=== PATIENT | female | born 1960 | race Caucasian/White ===

== ENCOUNTER 2024-03-02 17:17 | Inpatient (IN) | payer MEDICAID, SELFPAY ==
--- NOTE | ~2024-03-02 | MR_ITS ---
MRI of the brain Clinical History: Left-sided weakness, CVA Technique: Axial and sagittal T1-weighted images were acquired. These were followed by axial T2-weigh colby, diffusion weighted, gradient, and FLAIR images. Following intravenous administration of 16 cc Mu ltiHance gadolinium, T1-weighted fat-sat imaging was performed in the axial and coronal planes. Findings: There is a 1.4 x 0.6 cm area of restricted diffusion in the right paramedian ericka, compatib le with acute pontine infarct. There is corresponding subtle FLAIR hyperintense signal in this region . No other significant signal abnormality seen in the brain parenchyma. There are minimal chronic christa rovascular ischemic changes in the periventricular white matter bilaterally. Ventricles and subarachnoid spaces are unremarkable. Orbits are unremarkable. There is minimal ethmoi d sinus disease. Remaining paranasal sinuses and mastoid air cells are clear. Major intracranial flow voids are intact. Sagittal midline structures are intact. No abnormal postcontrast enhancement identified. IMPRESSION: Acute right paramedian pontine infarct, as detailed above. Reviewed, dictated and finalized at location .
--- NOTE | ~2024-03-02 | CT_ITS ---
EXAMINATION: CTA brain carotid DATE: 03/02/2024 18:46 INDICATION: CVA TECHNIQUE: Computed tomographic angiography (CTA) of the head was performed without and with 100 mL O mnipaque-350 intravenous contrast. CTA of the neck was performed with intravenous contrast. Automated exposure control and iterative reconstruction technique were employed. The dose-length product was 1 657.00 mGy-cm. Maximum intensity projection and volume rendered 3D-reconstructions were created by aisha rowley technologist on a separate workstation. COMPARISON: None. FINDINGS: CT BRAIN: No acute large vessel infarct, intracranial hemorrhage, mass, or hydrocephalus. Ethmoid mucosal thick ening, bilateral mastoid fluid, the remaining aerated spaces are clear. CTA HEAD: No large vessel occlusion, aneurysm, high flow vascular malformation, nidus or extravasation. Atheros clerotic calcifications in the bilateral cavernous carotids without significant stenosis. CTA NECK: Aortic arch and proximal great vessels: Normal arch anatomy. Moderate arch calcification. Moderate ca lcified and noncalcified plaque at the origin of the left common carotid artery causing moderate shor t segment stenosis. Right common carotid, carotid bifurcation, and internal carotid artery: Moderate calcified plaque at the bifurcation.There is 26% stenosis of the proximal right internal carotid artery relative to renato l distal artery lumen diameter (NASCET criteria). Left common carotid, carotid bifurcation, and internal carotid artery: Moderate calcified plaque at t he bifurcation.There is 31% stenosis of the proximal left internal carotid artery relative to normal distal artery lumen diameter (NASCET criteria). Vertebral arteries: Noncalcified plaque at the origin of the right vertebral artery causing severe sh ort segment stenosis. Vertebral arteries co-dominant. Other findings: Cervical spondylosis. IMPRESSION: No acute intracranial process. No large vessel intracranial occlusion, high-grade intracranial stenosis, or aneurysm. Moderate short segment stenosis at the origin of the left common carotid artery. Severe short segment stenosis at the origin of the right vertebral artery. No carotid or vertebral artery occlusion or dissection. Reviewed, dictated and finalized at location K. IMPRESSION: No acute intracranial process. No large vessel intracranial occlusion, high-grade intracranial stenosis, or an eurysm. Moderate short segment stenosis at the origin of the left common carotid artery . Severe short segment stenosis at the origin of the right vertebral artery. No carotid or vertebral artery occlusion or dissection.
[2024-03-02 17:18] VITALS: BP 170/50; PULSE 84; RESP 18; O2SAT 100
[2024-03-02 17:23] VITALS: BP 175/85; PULSE 91; RESP 20; TEMP 36.5; O2SAT 98
--- NOTE | 2024-03-02 17:33 | ECG_ITS ---
Test Date: 2024-03-02 17:33:32 Measurements Intervals [place] Rate: 82 P: 8 NM: 160 QRS: -2 QRSD: 89 T: -11 QT: 369 QTc: 432 Interpretive Statements SINUS RHYTHM WITH OCCASIONAL VENTRICULAR PREMATURE COMPLEXES INCOMPLETE RIGHT BUNDLE BRANCH BLOCK POSSIBLE INFERIOR MYOCARDIAL INFARCTION , OF INDETERMINATE AGE [40+ ms Q WAVE AND/OR ST/T ABNORMALITY IN II/aVF] No previous ECG available for comparison Electronically Signed On 03-03-2024 11:35:33 CDT by Anselmo Winters M.D.
[2024-03-02 17:35] LABS: Glucose Point of Care 99 mg/dl (65-105)
[2024-03-02 18:05] LABS: Basophils Absolute Auto 0.1 K/mm3 (0.0-0.1); Basophils Percent Auto 0.8 % (0.2-1.2); Eosinophils Absolute Auto 0.1 K/mm3 (0-0.3); Eosinophils Percent Auto 1.4 % (0-4.4); Hematocrit 45.9 % (37.0-47.0); Hemoglobin 15.5 g/dL (12.0-15.0); Immature Granulocyte Absolute 0.04 K/mm3 (0.00-0.031); Immature Granulocyte Percent A 0.4 % (0-0.5); Lymphocytes Absolute Auto 2.98 K/mm3 (0.9-3.2); Lymphocytes Percent Auto 30.8 % (18.3-44.2); Mean Corpuscular HGB Conc 33.8 g/dl (32-36); Mean Corpuscular Hemoglobin 30.5 pg (26-34); Mean Corpuscular Volume 90.4 fl (80-100); Mean Platelet Volume 9.8 fl (7.4-10.4); Monocytes Absolute Auto 0.7 K/mm3 (0.1-0.6); Monocytes Percent Auto 6.8 % (2.6-8.5); Neutrophils Absolute Auto 5.8 K/mm3 (1.3-6.7); Neutrophils Percent Auto 59.8 % (45.5-73.1); Platelet Count Result 331 k/mm3 (150-375); Red Blood Count 5.08 M/mm3 (4.2-5.4); Red Cell Distribution Width 12.7 % (11.5-14.5); White Blood Count 9.7 K/mm3 (4.5-10.0)
[2024-03-02 18:16] LABS: Alanine Aminotransferase 28 U/L (6-35); Albumin Level 4.7 g/dL (3.5-5.1); Alkaline Phosphatase 114 U/L (38-126); Anion Gap 9 mmol/L (4-12); Aspartate Amino Transferase 33 U/L (14-36); Bilirubin,Total 0.8 mg/dL (0.2-1.3); Blood Urea Nitrogen 9 mg/dL (7-17); Carbon Dioxide 24 mmol/L (22-30); Chloride 105 mmol/L (98-107); Estimated CRCL calculation 53 ml/min; Estimated Glomerular Filt Rate > 60; Glucose 104 mg/dL (65-110); Prothrombin Time 13.3 Seconds (11.1-14.7); Sodium 138 mmol/L (137-145)
[2024-03-02 18:17] VITALS: BP 160/58; PULSE 78; RESP 9; O2SAT 98
[2024-03-02 18:17] LABS: Partial Thromboplastin Time 30.6 Seconds (22.3-36.8)
--- NOTE | 2024-03-02 18:25 | ED.GENADULT ---
HPI - General Adult General Chief complaint: Neuro Symptoms/Deficit Stated complaint: left sided weakness since this AM Time Seen by Provider: 03/02/24 17:56 History of Present Illness HPI narrative: 63-year-old female presents to the emergency department for evaluation for left-sided weakness and left facial droop. Patient states that when she went to bed last night approximately midnight she had no complaints, when she woke up this morning around 930 she noticed she was having increased weakness of her left leg and left arm. It was not until the patient arrived to the emergency department she knows she was having some left-sided facial droop. patient denies any prior history of AL denies any prior history of CVA. patient does have an aspirin allergy Related Data Allergies Allergy/AdvReac Type Severity Reaction Status Date / Time aspirin Allergy Mild HIVES, Verified 11/26/17 17:06 RAISES B/P Penicillins Allergy Unknown Verified 11/26/17 17:06 Review of Systems Review of Systems: All systems reviewed & are unremarkable except as noted in HPI and below Exam Narrative: APPEARANCE: Well appearing, no pain, no distress, well-nourished. HEAD: normocephalic, atraumatic. EYES: PERRLA/EOMI, conjunctivae clear. NOSE: Normal no drainage EARS:TMS clear with good light reflex. THROAT: Pharynx clear, no exudate. NECK: Supple. No adenopathy, no masses. RESPIRATORY: Airway patent, respirations nonlabored. Clear to auscultation bilaterally, no rales, rhonchi, wheezing. CARDIOVASCULAR: Regular rate and rhythm without murmurs rubs or gallops. ABDOMINAL: Soft, nontender, nondistended, normal bowel sounds MUSCULOSKELETAL: Moves all extremities. Strength/ROM intact, No edema, No calf tenderness. NEURO: Left-sided facial droop, slurred speech, no visual deficit, drift of left arm and drift of left leg SKIN: Warm, dry. Normal Color Course Course Emergency Course: case discussed with neurology and hospitalist and patient was admitted for further evaluation of her suspected CVA Vital Signs Vital signs: Vital Signs Pulse Rate 84 03/02/24 17:18 Respiratory Rate 18 03/02/24 17:18 Blood Pressure 170/50 H 03/02/24 17:18 Pulse Oximetry 100 03/02/24 17:18 Temperature 97.7 F 03/02/24 17:23 Pulse Rate 86 03/02/24 20:07 Respiratory Rate 18 03/02/24 20:07 Blood Pressure 160/58 H 03/02/24 18:17 Pulse Oximetry 99 03/02/24 20:07 Oxygen Delivery Room Air 03/02/24 17:23 Medical Decision Making MDM Narrative Medical decision making narrative: 63-year-old female presenting ED for evaluation for left-sided facial droop and weakness. Patient does have an NIH score of 8 due to her left-sided facial droop and weakness. Patient is afebrile with no leukocytosis and a stable hemoglobin of 15.5. INR is 1.0. No acute abnormalities on the patient's CMP. Head neck CTA showed CVA or large vessel obstruction. Case is discussed with neurologist and with hospitalist and patient was accepted for admission. Patient was up to the results of her workup patient was willing to stay for further evaluation. Differential Diagnosis Differential Diagnosis: TIA, CVA, hemorrhagic stroke, embolic stroke Vital Signs Vital Signs: Vital Signs Pulse Rate 84 03/02/24 17:18 Respiratory Rate 18 03/02/24 17:18 Blood Pressure 170/50 H 03/02/24 17:18 Pulse Oximetry 100 03/02/24 17:18 Temperature 97.7 F 03/02/24 17:23 Pulse Rate 86 03/02/24 20:07 Respiratory Rate 18 03/02/24 20:07 Blood Pressure 160/58 H 03/02/24 18:17 Pulse Oximetry 99 03/02/24 20:07 Oxygen Delivery Room Air 03/02/24 17:23 Lab Data Lab results reviewed: Yes I reviewed the patient's lab results. 03/02/24 17:46 03/02/24 17:46 Labs: Lab Results 03/02/24 03/02/24 Range/Units 17:32 17:46 WBC 9.7 (4.5-10.0) K/mm3 RBC 5.08 (4.2-5.4) M/mm3 Hgb 15.5 H (12.0-15.0) g/dL Hct
--- NOTE | 2024-03-02 19:56 | PM.IMHP ---
H&P: HPI History of Present Illness Date/Time: 03/02/24 19:56 Chief Complaint: L hemiparesis Narrative: This is a 63 yo female with PMHx significant for Tobacco dependence, COPD/emphysema. Presents to ED due to L sided numbness, tingling ,weakness, denies speech disturbance or gait disturbance, no vision changes, no syncope or near syncope. Preliminary work up is essentially non revealing. Patient admitted for further evaluation, management and treatment. EXAMINATION: CTA brain carotid DATE: 03/02/2024 18:46 INDICATION: CVA TECHNIQUE: Computed tomographic angiography (CTA) of the head was performed without and with 100 mL Omnipaque-350 intravenous contrast. CTA of the neck was performed with intravenous contrast. Automated exposure control and iterative reconstruction technique were employed. The dose-length product was 1657.00 mGy-cm. Maximum intensity projection and volume rendered 3D-reconstructions were created by the technologist on a separate workstation. COMPARISON: None. FINDINGS: CT BRAIN: No acute large vessel infarct, intracranial hemorrhage, mass, or hydrocephalus. Ethmoid mucosal thickening, bilateral mastoid fluid, the remaining aerated spaces are clear. CTA HEAD: No large vessel occlusion, aneurysm, high flow vascular malformation, nidus or extravasation. Atherosclerotic calcifications in the bilateral cavernous carotids without significant stenosis. CTA NECK: Aortic arch and proximal great vessels: Normal arch anatomy. Moderate arch calcification. Moderate calcified and noncalcified plaque at the origin of the left common carotid artery causing moderate short segment stenosis. Right common carotid, carotid bifurcation, and internal carotid artery: Moderate calcified plaque at the bifurcation.There is 26% stenosis of the proximal right internal carotid artery relative to normal distal artery lumen diameter (NASCET criteria). Left common carotid, carotid bifurcation, and internal carotid artery: Moderate calcified plaque at the bifurcation.There is 31% stenosis of the proximal left internal carotid artery relative to normal distal artery lumen diameter (NASCET criteria). Vertebral arteries: Noncalcified plaque at the origin of the right vertebral artery causing severe short segment stenosis. Vertebral arteries co-dominant. Other findings: Cervical spondylosis. IMPRESSION: No acute intracranial process. No large vessel intracranial occlusion, high-grade intracranial stenosis, or aneurysm. Moderate short segment stenosis at the origin of the left common carotid artery. Severe short segment stenosis at the origin of the right vertebral artery. No carotid or vertebral artery occlusion or dissection. Review of Systems Review of Systems: L hemiparesis, numbness tingling Constitutional: Constitutional: Denies chills, Denies fatigue, Denies fever(s), Denies frequent falls, Denies headache(s), Denies malaise, Denies night sweats, Denies poor appetite and Denies weakness Eyes: Eyes: Denies change in vision ENT: Denies dysphagia, Denies vertigo, Denies dizziness and Denies odynophagia Cardiovascular: Cardiovascular: Denies chest pain, Denies radiating jaw, neck or arm pain and Denies palpitations Respiratory: Respiratory: Denies chest congestion, Reports cough, Denies excessive phlegm production, Denies dyspnea and Denies wheezing Gastrointestinal: Gastrointestinal: Denies abdominal pain, Denies diarrhea, Denies nausea and Denies vomiting Genitourinary: Genitourinary: Denies flank pain Musculoskeletal: Musculoskeletal: Denies muscle weakness Integumentary/Breasts: Skin/Breast: Denies rash Neurologic: Denies Abnormal speech present, Denies abnormal gait, Denies vertigo, Denies dizziness, Denies focal weakness, Reports numbness, Denies Sensory deficit (Neuro) and Reports tingling Psychiatric: Psychiatric: Reports no additional psychiatric complaints and Reports as per HPI Endocrine: Endoc
[2024-03-02 20:07] VITALS: PULSE 86; RESP 18; O2SAT 99
[2024-03-02 21:08] VITALS: BP 151/47; PULSE 72; RESP 18; TEMP 36.5; O2SAT 99; BMI 34.9
--- NOTE | 2024-03-02 21:11 | ADMGEN ---
This patient, Mariana Mina, was admitted to Medical Room 243-. Patient/family oriented to hospital policies and general routines including ID bracelet, bed and alarms, visiting hours, pain management, procedures, bathroom and other care routines, personal items, smoking policy, room service/diet, and visiting hours. Information on how to activate the Rapid Response Team has been discussed. Patient/Family are encouraged to report perceived risks to care and to ask questions if they do not understand what they are told or what they should do.
[2024-03-03] VITALS (8 sets, daily range): BP systolic 119–153; BP diastolic 73–82; PULSE 65–98; RESP 14–18; TEMP 36.3–36.5; O2SAT 90–96
--- NOTE | 2024-03-03 | ECHO_ITS ---
Patient Info Name: Mariana Mina Age: 63 years : 1960 Gender: Female Ht: 60 in Wt: 179 lbs BSA: 1.89 m2 HR: 74 bpm BP: 119 / 82 mmHg Technical Quality: Fair Exam Date: 03/03/2024 10:16 AM Exam Location: Echo Lab Patient Status: Outpatient Admit Date: 03/02/2024 Staff Ordering Physician: Nidia Rucker PA-C Lumpia Wrapper Maker: Eddie Brewster RDCS Attending Provider: Nidia Rucker PA-C Referring Physician: Chaim STEELE; Exam Type: CA echo doppler w bubble study Study Info Indications - CVA Complete two-dimensional, color flow and Doppler transthoracic echocardiogram is performed with agitated saline. Contrast/Agitated Saline Contrast/Ag. Saline: Agitated Saline Amount: 14.00 ml IV Access Condition: patent with no signs of infiltration Summary 1. Left ventricular chamber dimension is normal. 2. Left ventricular systolic function is normal, estimated at 60-65%. 3. The left ventricular diastolic function is grade I diastolic dysfunction. 4. E/e' 9 is minimally elevated. 5. There is mild mitral valve regurgitation. 6. There is trace tricuspid valve regurgitation. 7. No pulmonary hypertension, estimated pulmonary arterial systolic pressure is 27 mmHg. Left Ventricle E/e' 9 is minimally elevated. Left ventricular chamber dimension is normal. Left ventricular systolic function is normal, estimated at 60-65%. The left ventricular diastolic function is grade I diastolic dysfunction. Right Ventricle Right ventricular systolic function is normal and with normal TAPSE 1.9 cm. Right ventricular chamber dimension is normal. Left Atria Left atrial chamber dimension is normal. Right Atria Right atrial chamber dimension is normal. Atrial Septum Agitated saline injection with and without valsalva maneuver opacified right side cardiac chambers without shunt to left side cardiac chambers. Intact interatrial septum visualized by 2D and agitated saline imaging. Aortic Valve The aortic valve is trileaflet. There is no aortic valve stenosis. There is no aortic valve regurgitation. Pulmonic Valve There is no pulmonic regurgitation. Mitral Valve There is no mitral valve stenosis. There is mild mitral valve regurgitation. Tricuspid Valve There is trace tricuspid valve regurgitation. No pulmonary hypertension, estimated pulmonary arterial systolic pressure is 27 mmHg. Pericardium/Pleural There is no pericardial effusion. Inferior Vena Cava Normal inferior vena cava with >50% collapse upon inspiration consistent with normal right atrial pressure, 5 mmHg. Aorta The aortic root size at the sinus of Valsalva is normal. Left Ventricular Outflow Tract Name Value Normal LVOT 2D LVOT Diameter 1.9 cm LVOT Doppler LVOT Peak Gradient 3 mmHg LVOT Mean Gradient 1 mmHg LVOT VTI 18 cm LVOT VTI/AV VTI Ratio 0.6 LVOT Stroke Volume 54 ml LVOT CO 3.5 l/min LVOT CI 1.8 l/min/m2 Pulmonic Valve
--- NOTE | 2024-03-03 06:56 | PM.IMPN ---
Progress Note: A&P Assessment and Plan (1) Cerebrovascular accident: Code(s): I63.9 - Cerebral infarction, unspecified Status: Acute Assessment and Plan: Patient presented to the hospital with left sided facial droop and numbness. - Head/neck CTA: No acute intracranial process.No large vessel intracranial occlusion, high-grade intracranial stenosis, or aneurysm.Moderate short segment stenosis at the origin of the left common carotid artery.Severe short segment stenosis at the origin of the right vertebral artery.No carotid or vertebral artery occlusion or dissection. - LFTs WNL, however will start on low dose statin due to stroke like symptoms - MRI brain revealed acute right paramedian pontine infarct. - Echo with LVEF 60-65%, grade I diastolic dysfunction and no noted shunting. - ASA not started as patient has an allergy - Started on atorvastatin and plavix. Vitals are stable, will allow permissive hypertension per [facility] recommendations. - Neurology evaluated patient and states that patient requires vascular access and will need to be transferred. [facility] accepting transfer to general medicine floor. Accepting physician is Dr. Padilla. - Initiate stroke protocol, NIH Stroke Scale, neuro's q.4 hours - Telemetry - Monitor CBC, CMP, magnesium, troponin, and lipid profile Time Spent With Patient Time with patient: Greater than 35 minutes Subjective Date/time seen: 03/03/24 06:56 Interval history: 63 year old female with past medical history of tobacco use and COPD presents to the hospital for left sided numbness and facial droop. Patient is pleasant sitting up in bed. She continues to have left facial droop with left upper and lower extremity weakness. A CTA head/neck was performed on 03/02 revealed moderate short segment stenosis of the left common carotid artery and severe short segment stenosis of the right vertebral artery. Brain MRI performed today showed acute right paramedian pontine infarct. Patient evaluated by neurology who recommend transfer as patient likely needs vascular stenting of the vertebral artery. Patient was started on atorvastatin and plavix. No ASA started as patient is allergic. [facility] made [facility]. [facility] accepted as priority patient to general med floor. Accepting physician Dr. Padilla. 1320: RN called about family being at bedside with multiple questions. Returned to patients room and with her permission answered all family questions in regards to diagnosis, medications, and transfer. Review of Systems Review of Systems: All systems reviewed & are unremarkable except as noted in HPI and below Exam Narrative: AF HR 75 RR 14 SpO2 90 BP 153/73 General: female in no acute respiratory distress who is nontoxic appearing, lying semi recumbent in bed. HEENT: Normocephalic. Atraumatic. Pupils equal round reactive to light. Extraocular movement intact. Sclera clear and anicteric. Left facial droop. No facial numbness. Chest: Lungs are clear to auscultation bilaterally. No wheezes or crackles. CV: Heart was regular rate and rhythm. S1-S2. No murmurs, gallops, or rubs. Abd: Abdomen was soft. Nontender. Nondistended. Positive bowel sounds. No organomegaly or masses. Ext: No clubbing, cyanosis, or edema. 2+ DP pulses bilaterally. Neuro: Patient is alert and oriented x4. Left upper extremity ataxia and weakness. Left lower extremity 2/5 strength. Speech is clear. Psych: Normal mood and affect. Patient is pleasant and cooperative. Skin: Warm and dry. No rashes noted. Objective Data Vital Signs Vital Signs: Vital Signs - 24 hr 03/02/24 17:23 03/02/24 17:18 03/02/24 18:17 Temperature 97.7 F Pulse Rate 91 84 78 Respiratory Rate 20 18 9 L Blood Pressure 175/85 H 170/50 H 160/58 H Pulse Oximetry 98 100 98 Oxygen Delivery Room Air 03/02/24 20:07 03/02/24 21:21 03/02/24 21:08 Temperature 97.7 F Pulse Rate 86 72 Respiratory Rate 18 18 Blood Pressure 151/47 H Pulse Oximetry 99 99
[2024-03-03 07:41] LABS: Basophils Absolute Auto 0.1 K/mm3 (0.0-0.1); Eosinophils Absolute Auto 0.2 K/mm3 (0-0.3); Hematocrit 42.3 % (37.0-47.0); Hemoglobin 14.2 g/dL (12.0-15.0); Immature Granulocyte Absolute 0.01 K/mm3 (0.00-0.031); Immature Granulocyte Percent A 0.1 % (0-0.5); Lymphocytes Absolute Auto 2.85 K/mm3 (0.9-3.2); Lymphocytes Percent Auto 36.2 % (18.3-44.2); Mean Corpuscular HGB Conc 33.6 g/dl (32-36); Mean Corpuscular Hemoglobin 30.7 pg (26-34); Mean Corpuscular Volume 91.6 fl (80-100); Mean Platelet Volume 9.8 fl (7.4-10.4); Monocytes Absolute Auto 0.6 K/mm3 (0.1-0.6); Neutrophils Absolute Auto 4.2 K/mm3 (1.3-6.7); Neutrophils Percent Auto 53.7 % (45.5-73.1); Platelet Count Result 293 k/mm3 (150-375); Red Blood Count 4.62 M/mm3 (4.2-5.4); White Blood Count 7.9 K/mm3 (4.5-10.0)
[2024-03-03 07:54] LABS: Alanine Aminotransferase 25 U/L (6-35); Albumin Level 4.1 g/dL (3.5-5.1); Alkaline Phosphatase 95 U/L (38-126); Anion Gap 5 mmol/L (4-12); Aspartate Amino Transferase 34 U/L (14-36); Bilirubin,Total 0.8 mg/dL (0.2-1.3); Blood Urea Nitrogen 11 mg/dL (7-17); Calcium 8.8 mg/dL (8.4-10.2); Carbon Dioxide 29 mmol/L (22-30); Chloride 105 mmol/L (98-107); Estimated CRCL calculation 61 ml/min; Estimated Glomerular Filt Rate > 60; Glucose 100 mg/dL (65-110); Sodium 139 mmol/L (137-145)
[2024-03-03] MEDS: PANTOPRAZOLE 40 MG TABLET PO (08:21)
[2024-03-03 09:35] LABS: Hemoglobin A1C 5.8 % (<5.7)
[2024-03-03] MEDS: ATORVASTATIN 20 MG TABLET PO (10:57)
--- NOTE | 2024-03-03 11:54 | WPDNEURCNPN ---
Assessment and Plan Assessment and plan (1) Left-sided weakness: Code(s): R53.1 - Weakness Status: Acute (2) Tobacco dependence: Code(s): F17.200 - Nicotine dependence, unspecified, uncomplicated Status: Acute (3) Vertebral artery stenosis: Code(s): I65.09 - Occlusion and stenosis of unspecified vertebral artery Status: Acute Plan 1. Acute right paramedian pontine infarct of 1.4x0.6cm area corresponding to subtle FLAIR hyperintensity signal in the region with minimal chronic microvascular ischemic changes in the periventricular white matter bilaterally but normal ventricles and subarachnoid space along with moderate short-segment stenosis at the origin of the left common carotid artery and severe short-segment stenosis at the origin of the right vertebral artery. 2. hemoglobin A1c 5.8 3. Needs to check the cholesterol 4. Needs to be referred to the vascular surgeon for the consideration of the stenting and in the meantime continue Plavix 75mg daily. 5. Discuss with the patient and the family member. 6. Stop smoking Consult date: 03/03/24 HPI: Mariana Mina is a 63 year old female Admitted to the hospital through the emergency room for the complaints of left-sided weakness with facial droop. Patient reportedly went to bed last night at approximately midnight without any specific complaints and woke up in the morning around 9:30 a.m. with increased weakness of her left lower extremity and left upper extremity and when she arrived at the emergency room she noted her left-sided facial droop as well she gave no history of previous stroke or previous cardiac problem. she is reportedly allergic to aspirin on initial evaluation in the emergency room he was noted to have left-sided facial droop with dysarthria but no visual deficit and drift of the left upper and left lower extremity her vital signs were with blood pressure 170/50 pulse ox was 100 CBC was normal basic metabolic panel was normal and routine lab studies were normal head and neck CTA documented moderate short-segment stenosis at the origin of left common carotid artery with severe short-segment stenosis at the origin of the right vertebral artery. His stroke scale was 1, she does have a strong history of tobacco dependence, COPD emphysema, and currently everyday smoker but no alcohol intake Review of Systems Review of Systems: All systems reviewed & are unremarkable except as noted in HPI and below [facility] Social History Social History Smoking packs per day: 1 Smoking cigarettes per day: 20.0 Smoking status: Current every day smoker Tobacco type: cigarettes Alcohol intake: never Substance use: never Do You Feel Safe in your Home?: Yes Lack of Transportation: No Lack of Food: Never True Current Housing: I Have Housing Concerned About Future Housing: No Difficulty Paying Gas/Electric Bills: YES Difficulty Paying for Meds: YES Currently Unemployed: No Education: High School Diploma/GED Difficulty w/ Childcare or Family Care: No Spiritual care concerns: No Meds Home Medications and Allergies Home Medications Medication Instructions Recorded Confirmed Type esomeprazole magnesium 40 mg 40 mg PO DAILY 03/02/24 03/02/24 History capsule,delayed release (Nexium) Allergies Allergy/AdvReac Type Severity Reaction Status Date / Time aspirin Allergy Mild HIVES, Verified 11/26/17 17:06 RAISES B/P Penicillins Allergy Unknown Verified 11/26/17 17:06 Vital Signs Vital Signs - 24 hr 03/02/24 17:23 03/02/24 17:18 03/02/24 18:17 Temperature 36.5 C Pulse Rate 91 84 78 Respiratory Rate 20 18 9 L Blood Pressure 175/85 H 170/50 H 160/58 H Pulse Oximetry 98 100 98 Oxygen Delivery Room Air Fraction of Inspired Oxygen 03/02/24 20:07 03/02/24 21:21 03/02/24 21:08 Temperature 36.5 C Pulse Rate 86 72 Respiratory Rate 18 18 Blood Pressure 151/47 H Pulse Oximetry 99 99
--- NOTE | 2024-03-03 14:11 | PCOTNOTE ---
Attempted to see pt. for occupational therapy evaluation. Per nursing, pt. should not be seen at this time due to concerns for acute medical condition, awaiting transfer to [facility]. Following.
--- NOTE | 2024-03-03 15:37 | PM.TDS ---
Transfer Discharge Sum: Prov Provider Date of admission: 03/03/24 13:33 Primary care physician: Melida Lepe, Admitting clinician: Yadira Quintero MD Consults: 03/02/24 19:59 Consult to Physician Routine Comment: Consulting Provider: Tae Moody Reason for consultation: CVA Has provider been notified: Yes Attending physician on discharge: Saeid Aden Discharging clinician: Nidia Rucker Anticipated date of transfer: 03/03/24 Receiving physician/facility: Dr. Padilla / [facility] DS: Admitting Diagnosis Discharge Date 03/03/24 Admitting Diagnosis Cerebrovascular accident Vertebral artery stenosis Left sided weakness Tobacco dependence DS: Discharge Diagnosis Discharge Diagnosis (1) Cerebrovascular accident: Code(s): I63.9 - Cerebral infarction, unspecified Status: Acute (2) Vertebral artery stenosis: Code(s): I65.09 - Occlusion and stenosis of unspecified vertebral artery Status: Acute (3) Left-sided weakness: Code(s): R53.1 - Weakness Status: Acute (4) Tobacco dependence: Code(s): F17.200 - Nicotine dependence, unspecified, uncomplicated Status: Acute Transfer Discharge Sum: Med Medications Active and Home Medications: Home Medications esomeprazole magnesium 40 mg capsule,delayed release (Nexium) 40 mg PO DAILY 03/02/24 [History Confirmed 03/02/24] atorvastatin 20 mg tablet 20 mg PO DAILY #1 tablet 03/03/24 [Rx] clopidogrel 75 mg tablet 75 mg PO QAM #1 tablet 03/03/24 [Rx] Active Medications Atorvastatin Calcium (Atorvastatin 20 Mg Tablet) 20 mg PO DAILY [facility] Last Admin: 03/03/24 10:57 Dose: 20 mg Clopidogrel Bisulfate (Clopidogrel Bisulfate 75 Mg Tablet) 75 mg PO QAM [facility] Pantoprazole Sodium (Pantoprazole 40 Mg Tablet) 40 mg PO QAM [facility] Last Admin: 03/03/24 08:21 Dose: 40 mg Perflutren Lipid Microsphere (Perflutren Lipid Microspheres 1.5 Ml Vial Diluted To 10 Ml Total Volume) 0 ml IV PUSH ONCE PRN; Protocol PRN Reason: adequate visualization Stop: 03/06/24 08:29 Transfer Discharge Sum: Hosp Hospital Course Hospital course: Mariana Mina is a 63 year old female past medical history of tobacco use and COPD presents to the hospital for left sided numbness and facial droop. Patient states that she went to bed on 03/01 without any issues and woke up with noted weakness to the left upper and lower extremity. Upon arriving to the ED she developed left facial droop. Patient denies any prior strokes or cardiac history. Unable to start patient on aspirin as she is allergic. Head/neck CTA revealed no acute intracranial process, moderate short segment stenosis at the origin of the left common carotid artery, and severe short segment stenosis at the origin of the right vertebral artery.No carotid or vertebral artery occlusion or dissection. MRI brain revealed acute right paramedian pontine infarct. Echo with LVEF 60-65%, grade I diastolic dysfunction and no noted shunting. Cholesterol panel WNL. Neurology evaluated patient and states that patient requires vascular access and will need to be transferred. [facility] accepting transfer to general medicine floor. Accepting physician is Dr. Padilla. Patient has since been started on atorvastatin and plavix. Vitals are stable, will allow permissive hypertension. Final diagnosis: Acute right paramedian pontine infarct. Moderate short segment stenosis at the origin of the left common carotid artery.Severe short segment stenosis at the origin of the right vertebral artery. Time Spent with Patient Time attestation: Total time spent providing and/or coordinating transfer services: Total time spent: Greater than 30 minutes Exam Narrative: AF HR 75 RR 14 SpO2 90 BP 153/73 General: female in no acute respiratory distress who is nontoxic appearing, lying semi recumbent in bed. HEENT: Normocephalic. Atraumatic. Pupils equal round reactive to light. Extraocular movement intact. Sclera clear and
[2024-03-03 18:04] LABS: Cholesterol 237 mg/dL (0-200)
== END 2024-03-03 19:45 | disposition short-term general hospital (02) | DRG 45 ==
LOC: ANHED 20:07 → ANH2MED 20:40
PROVIDERS: Student in an Organized Health Care Education/Training Program; Admitting Provider Internal Medicine; Emergency Provider Emergency Medicine; PCP Internal Medicine; Visit Provider Internal Medicine
DX: I63.211 Cerebral infarction due to unspecified occlusion or stenosis of right vertebral artery (principal); I63.232 Cerebral infarction due to unspecified occlusion or stenosis of left carotid arteries; G81.94 Hemiplegia, unspecified affecting left nondominant side; R29.810 Facial weakness; R20.0 Anesthesia of skin; F17.210 Nicotine dependence, cigarettes, uncomplicated; J43.9 Emphysema, unspecified; R29.708 NIHSS score 8
CPT/HCPCS: 36415; 70496; 70498; 70553; 80053; 82465; 82948; 83036; 84443; 85025; 85610; 85730; 93005; 93306; 96375; 97161; 99285; A9270; A9577; G0378; Q9967